=== PATIENT | male | born 1975 | race Two or more races ===

== ENCOUNTER 2017-03-17 02:46 | Emergency (ER) | payer OTHER ==
[~2017-03-17] VITALS: Ht 172.7 cm; Wt 74.8 kg
[2017-03-17 03:05] VITALS: BP 136/90
[2017-03-17] MEDS ORDERED: LIDOCAINE 1% HCL (LOCAL ANESTH.) INJ 20ML MDV IN ONE (03:15)
[2017-03-17] MEDS ORDERED: ACETAMINOPHEN 500 MG TAB PO ONE (04:00)
== END 2017-03-17 03:59 | disposition home or self-care (01) ==
LOC: ER 02:46
DX: B35.1 Tinea unguium (principal)
CPT/HCPCS: 11730